=== PATIENT | female | born 1950 | race Caucasian/White ===

== ENCOUNTER → 2016-07-05 | Outpatient (CLI) | payer BC ==
[~2016-07-05] MED LIST: ASPEC81 PO; ATOR-24 PO; CHOL1000 PO; CHOL100010 PO; ESTR10TA PV; HYDR-5688 PO; LPT40 PO; LSN25 PO; LUTE15CA PO; METO25TA3 PO; METO50TA16 PO; PLV75 PO; ZEAX5POW PO; ZNTT/150 PO
--- NOTE | 2016-07-05 15:37 | MAMMOGRAPHY REPORT ---
BILATERAL DIGITAL SCREENING MAMMOGRAM WITH CAD: 07/05/2016 CLINICAL HISTORY: Routine screening. Patient has no complaints. TECHNIQUE: Bilateral CC and MLO views were obtained. Current study was also evaluated with a Comput er Aided Detection (CAD) system. COMPARISON: Comparison is made to exams dated: 06/12/2015 mammogram, 05/23/2014 mammogram, 05/07/2013 mammogram, 06/24/2015 mammogram, 05/01/2012 mammogram, and 04/19/2011 mammogram - [facility]. BREAST COMPOSITION: The tissue of both breasts is heterogeneously dense, which may obscure small ma sses. FINDINGS: There is decreasing nodularity of the right breast. There are mild vascular calcification s bilaterally. A stable round and punctate microcalcifications within the right breast. No new june picious mass, architectural distortion or cluster of microcalcifications is seen. IMPRESSION: ACR BI-RADS CATEGORY 1: NEGATIVE There is no mammographic evidence of malignancy. A 1 year screening mammogram is recommended. The p atient will receive written notification of the results. Approximately 10% of breast cancers are not detected with mammography. A negative mammographic repor t should not delay biopsy if a clinically suggestive mass is present. Porsha Godinez M.D. ay/:07/05/2016 14:35:59 Family Health Nurse Practitioner: Bere MENG(Meenakshi)(M), [facility] letter sent: Normal 1/2 BI-RADS Code: ACR BI-RADS Category 1: Negative
== END | disposition home or self-care (01) ==
LOC: C.MAMM 13:56
PROVIDERS: ATTEND Obstetrics & Gynecology
DX: Z12.31 Encounter for screening mammogram for malignant neoplasm of breast (principal)

== ENCOUNTER → 2016-08-30 | Day surgery (SDC) | payer BC ==
[2016-08-24 08:40] VITALS: Ht 149.9 cm; Wt 50.9 kg
[~2016-08-30] VITALS: Ht 149.9 cm; Wt 50.9 kg
[~2016-08-30] MED LIST changes: +ATROPINE SULFATE 0.1 MG/ML 5ML SYR IV PRN; +BUPIVACAINE 0.5 % 5 MG/1 ML PF 10ML VIAL ONE; +CEFAZOLIN 1000MG/55 ML D5W IV SCH; -CHOL100010 PO; +DEXAMETHASONE SOD INJ 4 MG/ML VIAL ONE; +FENTANYL CITRATE INJ 50 MCG/1 ML 2 ML VIAL IV PRN; +FENTANYL CITRATE INJ 50 MCG/1 ML 2 ML VIAL ONE; +LACTATED RINGER'S 1000ML 1,000 ML IV SCH; +LIDOCAINE HCL 1% 20 ML VIAL ONE; +LIDOCAINE HCL 2% 2 ML VIAL (20MG/ML) ONE; -LPT40 PO; -LSN25 PO; -METO50TA16 PO; +MIDAZOLAM HCL 1 MG/ML 2ML VIAL ONE; +ONDANSETRON INJ 2 MG/ML 2 ML VIAL IV PRN; +ONDANSETRON INJ 2 MG/ML 2 ML VIAL ONE; +OXYCODONE/ACETAMINOPHEN 5-325 TAB PO PRN; +PROPOFOL IV EMULSION 10 MG/ML 20 ML VIAL IV ONE; +SODIUM CHLORIDE 0.9% 1000ML 1,000 ML IV SCH; -ZEAX5POW PO; -ZNTT/150 PO
--- NOTE | 2016-08-30 06:43 | History & Physical Bridge - SC ---
H&P Re-Evaluation Bridge Note: I have examined the patient, reviewed the History & Physical and in the interval since the performance of the History & Physical I have noted the following changes of clinical significance: No changes noted
--- NOTE | 2016-08-30 07:40 | [facility] Post Operative Brief Note ---
Immediate Operative Summary Operative Date Aug 30, 2016. Pre-Operative Diagnosis Left Carpal Tunnel Syndrome Post-Operative Diagnosis Same Procedure(s) Performed Left Carpal Tunnel Release Surgeon Dr. Reis Manager Mechanical Surgeon(s) Derrick Delacruz PA-C Estimated Blood Loss None Findings ABOVE Specimens None Anesthesia LOCAL IV SEDATION Complication(s) None Disposition
--- NOTE | 2016-08-30 07:45 | Discharge Instructions-SurgCtr ---
Discharge Instructions Date of Service Aug 30, 2016. Visit Reason for Visit: Left Carpal Tunnel Syndrome, Pain Discharge Discharge Diagnosis / Problem: SAME ABOVE Discharge Goals Goal(s): Decrease discomfort, Improve function Activity Recommendations Activity Limitations: as noted below Lifting Limitations: until after follow-up appointment Exercise/Sports Limitations: until after follow-up appointment Shower/Bathe: keep incision dry Anesthesia . Post Anesthesia Instructions: If you have had General Anesthesia or IV Sedation: * Do not drive today. * Resume driving when surgeon permits. * Do not make important decisions or sign legal documents today. * Call surgeon for: 1. Temperature elevations greater than 101 degrees F. 2. Uncontrollable pain. 3. Excessive bleeding. 4. Persistent nausea and vomiting. 5. Medication intolerance (nausea, vomiting or rash). * For nausea and vomiting use only clear liquids such as: tea, soda, bouillon until nausea subsides, then gradually increase diet as tolerated. * If you have any concerns or questions, call your surgeon's office. If physician is unavailable and it is an emergency, call 911 or go to the nearest emergency room. . Instructions / Follow-Up Instructions / Follow-Up MEDICATIONS: * Resume previous medications unless instructed otherwise by your surgeon. * Always take pain medication on a full stomach or with food to avoid upset stomach. * Do not drink alcohol or drive while taking narcotics. * Ibuprofen or Tylenol may be taken if narcotic not needed. SPECIAL CARE INSTRUCTIONS: __ None _X_ Keep extremity elevated and iced x 48 hours; apply ice 20-30 minutes 8-10 times/day. May remove at night. __ Sling __24 hrs/day __ Remove at night __ Shoulder Immobilizer __ 24 hrs/day __ Remove at night _X_ Dressing _X_ Maintain until seen in office, may shower with plastic over site __ Remove dressings in 24-48 hours and then may shower __ Cover incisions with band-aids after showering __ Do not remove steri-strips Call physician if chills or temperature rises above 102 degrees or pain unrelieved by prescribed pain medications at . . Diet Recommendations Home Diet: resume previous diet Procedures Procedures Performed: Left Carpal Tunnel Release Pending Studies Studies pending at discharge: no Medical Emergencies . Who to Call and When: Medical Emergencies: If at any time you feel your situation is an emergency, please call 911 immediately. . Non-Emergent Contact Non-Emergency issues call your: Primary Care Provider . . "Provider Documentation" section prepared by Son Delacruz.
[2016-08-30 07:46] VITALS: TEMP 36.3
[2016-08-30 08:15] VITALS: BP 111/74; PULSE 66; O2SAT 98
--- NOTE | 2016-08-30 08:29 | OPERATIVE REPORT ---
DATE OF OPERATION: 08/30/2016 PREOPERATIVE DIAGNOSIS: Left carpal tunnel syndrome. POSTOPERATIVE DIAGNOSIS: Same. PROCEDURE: Decompression medial nerve release transverse carpal ligament, left wrist. SURGEON: Dr. Reis. PST SUPERVISOR: Son Delacruz PA-C. ANESTHESIOLOGIST: Dr. Landa. ANESTHESIA: Local with IV sedation. DRAINS: None. COMPLICATIONS: None. CONDITION: The patient tolerated the procedure well and returned to the recovery room in apparent satisfactory condition. INDICATIONS FOR SURGERY: Sheridan is a 66-year-old female who has had increasing numbness, pain and discomfort in the left hand consistent with carpal tunnel. Went over treatment options and she elected to go ahead and proceed with surgery. Procedure, expected outcomes, side effects and risks were all explained in detail in the office. PROCEDURE: The patient was taken to the OR at which time she was placed supine on the operating table. The left hand was prepped and draped in the usual sterile fashion for this surgery. The anticipated incision site was infiltrated with 1% Xylocaine. A forearm tourniquet was placed on the arm and tourniquet was placed up to 250 mmHg. Incision was made vertically over the transverse carpal tunnel ligament. Dissection was done down until the palmar fascia was identified and divided with a 15-blade. The transverse carpal ligament was identified and also divided with the 15-blade and upbiting scissors. A small portion of the forearm fascia was divided also. Electrocautery was used to control any areas of bleeding. The nerve was freed up from any scar tissue and adequately decompressed. The wound then was copiously irrigated. It was closed then with interrupted 4-0 nylon sutures. Marcaine without Epinephrine was placed in the skin edges. It was closed in a layered fashion. We placed a sterile dressing of Xeroform, 4 x 4, volar splint, and an Garth bandage. DISPOSITION: The patient was returned back to the recovery room in apparent satisfactory condition. I attest to the content of the Intraoperative Record and any orders documented therein. Any exceptio ns are noted below.
--- NOTE | 2016-08-30 08:36 | Anesthesia Progress Nt - [facility] ---
Anesthesia Post Op Note Date & Time Aug 30, 2016 at 08:36 Vital Signs Pain Intensity: 0 Vital Signs Past 12 Hours Date Time Temp Pulse Resp B/P Pulse Ox O2 Delivery O2 Flow Rate FiO2 08/30/16 08:15 66 16 111/74 98 Room Air 08/30/16 07:46 36.3 70 16 92/58 96 Room Air 08/30/16 06:38 36.3 78 20 137/73 96 Room Air Notes Mental Status: alert / awake / arousable, participated in evaluation Pt Amnestic to Procedure: Yes Nausea / Vomiting: adequately controlled Pain: adequately controlled Airway Patency, RR, SpO2: stable & adequate BP & HR: stable & adequate Hydration State: stable & adequate Anesthetic Complications: no major complications apparent
== END | disposition home or self-care (01) ==
LOC: X.SURG 06:32
PROVIDERS: ATTEND Orthopaedic Surgery
DX: G56.02 Carpal tunnel syndrome, left upper limb (principal); I10 Essential (primary) hypertension; Z79.82 Long term (current) use of aspirin; Z79.899 Other long term (current) drug therapy

== ENCOUNTER → 2017-06-08 | Outpatient (CLI) | payer BC ==
[~2017-06-08] MED LIST changes: -ASPEC81 PO; +ASPI-320 PO; -ATROPINE SULFATE 0.1 MG/ML 5ML SYR IV PRN; -BUPIVACAINE 0.5 % 5 MG/1 ML PF 10ML VIAL ONE; -CEFAZOLIN 1000MG/55 ML D5W IV SCH; -DEXAMETHASONE SOD INJ 4 MG/ML VIAL ONE; -FENTANYL CITRATE INJ 50 MCG/1 ML 2 ML VIAL IV PRN; -FENTANYL CITRATE INJ 50 MCG/1 ML 2 ML VIAL ONE; -HYDR-5688 PO; -LACTATED RINGER'S 1000ML 1,000 ML IV SCH; -LIDOCAINE HCL 1% 20 ML VIAL ONE; -LIDOCAINE HCL 2% 2 ML VIAL (20MG/ML) ONE; -MIDAZOLAM HCL 1 MG/ML 2ML VIAL ONE; -ONDANSETRON INJ 2 MG/ML 2 ML VIAL IV PRN; -ONDANSETRON INJ 2 MG/ML 2 ML VIAL ONE; -OXYCODONE/ACETAMINOPHEN 5-325 TAB PO PRN; -PROPOFOL IV EMULSION 10 MG/ML 20 ML VIAL IV ONE; -SODIUM CHLORIDE 0.9% 1000ML 1,000 ML IV SCH
--- NOTE | 2017-06-15 06:48 | CODING QUERY MEDICAL NECESSITY ---
CQSUPPORTING DIAGNOSIS NEEDED A supporting diagnosis is required for the test/procedure performed on this patient in order for us to be reimbursed by the patient's insurance. Please provide a supporting diagnosis for the following test/procedure listed below next to the test name along with your signature. *If there is no additional diagnosis for this patient that would support the following test/procedure please document that below next to the test/procedure. Test(s)/Procedure(s) that require a supporting diagnosis: DOS 06/08/17 BONE MINERAL DENSITY STUDY Provider Signature: Date: Thank you Sue Dai Health Information Management Once completed, please kindly fax back to [phone] For questions please call [phone]
== END | disposition home or self-care (01) ==
LOC: C.MAMM 13:34
PROVIDERS: ATTEND Physician Assistant
DX: Z13.820 Encounter for screening for osteoporosis (principal)

== ENCOUNTER → 2017-08-24 | Outpatient (CLI) | payer BC ==
[~2017-08-24] MED LIST changes: +ASPEC81 PO; -ASPI-320 PO
--- NOTE | 2017-08-29 08:15 | MAMMOGRAPHY REPORT ---
BILATERAL DIGITAL SCREENING MAMMOGRAM TOMOSYNTHESIS WITH CAD: 08/24/2017 CLINICAL HISTORY: Routine screening. Patient has no complaints. TECHNIQUE: Breast tomosynthesis in addition to standard 2D mammography was performed. Current study was also evaluated with a Computer Aided Detection (CAD) system. COMPARISON: Comparison is made to exams dated: 07/05/2016 mammogram, 06/24/2015 mammogram, 06/12/2015 ma mmogram, 05/23/2014 mammogram, 05/07/2013 mammogram, and 05/01/2012 mammogram - [facility]. BREAST COMPOSITION: The tissue of both breasts is heterogeneously dense, which may obscure small mas ses. FINDINGS: No suspicious masses, calcifications, or areas of architectural distortion are noted in ei ther breast. There has been no significant interval change compared to prior exams. IMPRESSION: ACR BI-RADS CATEGORY 1: NEGATIVE There is no mammographic evidence of malignancy. A 1 year screening mammogram is recommended. The pa tient will receive written notification of the results. Approximately 10% of breast cancers are not detected with mammography. A negative mammographic report should not delay biopsy if a clinically suggestive mass is present. Rosa Sands M.D. ah/:08/24/2017 13:51:42 Industrial Hygenist: Margarita MENG(R)(M), [facility] letter sent: Normal 1/2 BI-RADS Code: ACR BI-RADS Category 1: Negative
== END | disposition home or self-care (01) ==
LOC: C.MAMM 13:09
PROVIDERS: ATTEND Obstetrics & Gynecology
DX: Z12.31 Encounter for screening mammogram for malignant neoplasm of breast (principal)

== ENCOUNTER 2022-06-10 16:56 | Inpatient (IN) ==
[2022-06-10] MEDS ORDERED: cefTRIAXone SODIUM 2,000 MG/70 ML BAG IV STA (17:30)
[2022-06-10] MEDS ORDERED: SODIUM CHLORIDE 0.9% 1000ML 2,000 ML IV ONE (17:33)
--- NOTE | 2022-06-10 17:36 | Emergency Department Note ---
Impression & Plan Sepsis, Respiratory failure, Hypoxia, Pneumonia ED Provider Note NAME: RICHARD MÉNDEZ AGE: 72 SEX: F : 1950 ARRIVES VIA: Walk-In INFORMANT: Patient, ED PROVIDER(S): Jaxson Barahona DO CHIEF COMPLAINT: Fever and shortness of breath HPI: Patient is a 72-year-old female who presents the ER for cough, congestion, runny nose, which started on the . She was around her grandchildren who are also sick with upper respiratory symptoms. The positive for human me tapneumovirus. She notes the fever started within the past 3 to 4 days. She has had a pulse ox readings of 85% at home. Denies any belly pain, nausea, vomiting, or diarrhea. No dysuria, urgency, or frequency. No other exacerbating or remitting factors. She is more short of breath with up moving around. PAST MEDICAL HISTORY:See Below PAST SURGICAL HISTORY:See Below FAMILY HISTORY:See Below SOCIAL HISTORY:See Below HOME MEDICATIONS:See Below ALLERGIES:See Below VITALS:See Below PHYSICAL EXAMINATION: GENERAL: Sitting up in bed, alert, intermittent cough and a slightly hoarse voice EYE EXAM: normal conjunctiva. PERRL and EOM's grossly intact. OROPHARYNX: mucous membranes are dry NECK: supple, no nuchal rigidity, no adenopathy, non-tender LUNGS: Clear to auscultation. Normal chest wall mechanics HEART: Tachycardic, S1 normal and S2 normal ABDOMEN: abdomen soft, non-tender, normo-active bowel sounds, no masses, no rebound or guarding. UPPER EXTREMITIES: upper extremities are grossly normal. LOWER EXTREMITIES: No pitting edema. NEURO EXAM: Normal sensorium, cranial nerves II-XII grossly intact, normal speec h, no gross weakness of arms, no gross weakness of legs. MEDICAL DECISION MAKING: Patient 72-year-old female who presents ER for above-stated complaint found to be hypoxic, febrile and tachycardic. External records were reviewed. Discussed with at length at bedside. Vitals show the patient is febrile, tachycardic and hypoxic. Patient was placed on nasal cannula. IVs were established blood work was obtained. Labs show no significant leukocytosis or anemia. BMP with a mild hypokalemia 3.3. Mild transaminitis. Troponin was negative. Pro-Baltazar was normal. UA was clean. Influenza COVID and RSV was negative. Do favor that this is human metapneumovirus combination with a mc mitten bacterial infection as chest x-ray shows bilateral infiltrates. Patient was given Rocephin and azithromycin. She was given 2 L of IV fluids as well as Tylenol updated at bedside as well as the and discussed with Dr. Eric Rodríguez for further evaluation and admission Triage Nursing notes reviewed. Limited review of prior medical records performed Vital Signs: reviewed and remarkable for hypoxic, febrile and tachycardic Differential diagnosis: Differential diagnosis includes etiologies such as sepsis, UTI, pneumonia, metabolic, electrolyte abnormalities, cardiac sources, intracerebral event, toxicologic, neurological, as well as others were entertained. ER treatment provided: See below Diagnostics interpreted by me include EKG and cardiac monitoring as listed below: -Cardiac Monitoring: An order was placed for continuous cardiac monitoring. The monitor shows a rate of 110 with sinus rhythm. -ECG: Sinus tachycardia rate of 110 Normal axis No PVCs QTC 414 -Laboratory studies:Interpreted by me as stated above in MDM and shown below. Imaging studies: Xrays: As interpreted by me: Portable AP upright 1 view of the chest per my read shows bilateral focal infiltrates CTs show: none Consultation(s): Discussed with Dr. Eric Rodríguez in regards to presentation, treatment, history and further work-up. Procedures:none Critical Care: I have personally spent 35 minutes of critical care time in the direct management of this patient. This includes bedside care, interpretation of diagnostic studies, and testing, discussion with consultants, patient, and family members, and other required patient management activities. This 35 minutes is in excess of all separately billable procedures. Past Med/Surg History Medical History (Updated 06/10/22 @ 22:07 by Jaxson Barahona DO) Abnormal mammography Acute inferior myocardial infarction Antiplatelet or antithrombotic long-term use CAD (coronary artery disease) Dyslipidemia History of inferior wall myocardial infarction Lichen sclerosus et atrophicus Postmenopausal atrophic vaginitis Presence of drug-eluting stent in right coronary artery Vaginitis Surgical History S/P breast biopsy Family History Other Coronary heart disease Hypertension Social History Smoking Status: Never smoker Hx Alcohol Use: No Preferred Language: Chadian marital status: Current Living Situation: Spouse Feels Safe at Home: Yes Allergies Allergies Allergy/AdvReac Type Severity Reaction Status Date / Time Sulfa (Sulfonamide Allergy Intermediate blisters Verified 06/10/22 18:33 Antibiotics) Home Meds Home Medications Medication Instructions Recorded Confirmed aspirin 81 mg tablet,delayed 81 mg PO DAILY 03/27/19 06/10/22 release cholecalciferol (vitamin D3) 25 1,000 units PO DAILY 03/27/19 06/10/22 mcg (1,000 unit) capsule lutein 20 mg tablet 20 mg PO DAILY 03/27/19 06/10/22 Previous Rx's Medication Instructions Recorded atorvastatin 40 mg tablet 40 mg PO Q OTHER DAY #45 tabs 01/31/22 metoprolol succinate 25 mg 12.5 mg PO DAILY #45 tabs 01/31/22 tablet,extended release 24 hr estradiol 10 mcg vaginal tablet 10 mcg vaginal 2XWK #24 tabs 04/22/22 (Vagifem) Results & Data (ED) Vital Signs Vital Signs - 24 hr 06/10/22 17:10 06/10/22 17:41 06/10/22 17:41 Temperature 38.8 C H Temperature Source Temporal Artery Scan Pulse Rate 118 H Pulse Rate [Apical] Pulse Rate [Right Finger] 108 H Pulse Rhythm [Right Finger] Regular Pulse Strength [Right Finger] Normal Respiratory Rate 22 18 Respiratory Effort / Characteristics Non-Labored Respiratory Depth Normal Respiratory Pattern Regular Blood Pressure 156/61 H Blood Pressure [Right Arm] 145/69 H Blood Pressure Mean 92 Blood Pressure Mean [Right Arm] 94 Blood Pressure Position [Right Arm] Lying Pulse Oximetry 88 L 96 Oxygen Delivery Method Room Air Room Air Room Air Oxygen Flow Rate Sepsis Recent Fever Within 48 Hours Yes Sepsis New/Unexplained Change in Mental Status No Sepsis Action Taken by Nursing No Action Required 06/10/22 18:00 06/10/22 19:14 06/10/22 21:42 Temperature Temperature Source Pulse Rate Pulse Rate [Apical] 90 Pulse Rate [Right Finger] 111 H 90 Pulse Rhythm [Right Finger] Regular Pulse Strength [Right Finger] Normal Respiratory Rate 18 19 23 Respiratory Effort / Characteristics Non-Labored Non-Labored Spontaneous Spontaneous Respiratory Depth Normal Normal Normal Respiratory Pattern Regular Regular Regular Blood Pressure Blood Pressure [Right Arm] 117/72 114/66 123/63 Blood Pressure Mean Blood Pressure Mean [Right Arm] 87 82 83 Blood Pressure Position [Right Arm] Lying Pulse Oximetry 95 95 96 Oxygen Delivery Method Nasal Cannula Nasal Cannula Nasal Cannula Oxygen Flow Rate 3 3 Sepsis Recent Fever Within 48 Hours Sepsis New/Unexplained Change in Mental Status Sepsis Action Taken by Nursing Laboratory Data 06/10/22 17:25 06/10/22 17:25 Lab Results 06/10/22 06/10/22 06/10/22 Range/Units 17:25 17:25 17:25 WBC 9.61 (4.8-10.8) K/ul RBC 4.07 (3.93-5.22) M/uL Hgb 11.7 L (12.0-16.0) g/dl Hct 34.4 (34.1-44.9) % MCV 84.5 (80.0-100.0) fL MCH 28.7 (25.0-34.0) pg MCHC 34.0 (32.0-36.0) g/dL RDW Std Deviation 44.4 (36.4-46.3) fL RDW Coeff of Salbador 14.3 (11.5-14.5) % Plt Count 254 (130-400) K/uL MPV 10.0 (9.4-12.3) fL Immature Gran % (Auto) 0.8 % Neut % (Auto) 83.1 % Lymph % (Auto) 7.1 % Boyle % (Auto) 8.3 % Eos % (Auto) 0.1 % Baso % (Auto) 0.6 % Neut # (Auto) 7.98 H (1.4-6.5) K/uL Lymph # (Auto) 0.68 L (1.2-3.4) K/uL Boyle # (Auto) 0.80 (0.24-0.82) K/uL Eos # (Auto) 0.01 (0-0.50) K/uL Baso # (Auto) 0.06 (0-0.2) K/uL Immature Gran # (Auto) 0.08 H (0.00-0.02) K/uL Sodium 137 (136-145) mmol/L Potassium 3.3 L (3.5-5.1) mmol/L Chloride 101 (98-107) mmol/L Carbon Dioxide 26 (21-32) mmol/L Anion Gap 10 (3-11) BUN 12 (6-23) mg/dl Creatinine 0.79 (0.6-1.2) mg/dl Est Cr Clr Drug Dosing 47.8 ml/min Est GFR ( Amer) 86.1 ml/min Est GFR (Non-Af Amer) 74.3 ml/min BUN/Creatinine Ratio 15.2 (10-20) Glucose 147 H (70-99(Fasting)) mg/dl Lactate (0.4-2.0) mmol/L Calcium 9.0 (8.5-10.1) mg/dl Magnesium 1.8 (1.7-2.4) mg/dl Total Bilirubin 1.0 (0.2-1.0) mg/dl Direct Bilirubin 0.4 H (0-0.2) mg/dl AST 80 H (13-39) U/L ALT 69 H (7-52) U/L Alkaline Phosphatase 110 H (34-104) U/L Troponin I High Sens 11.4 (0-14) pg/ml Total Protein 7.1 (6.0-8.3) gm/dl Albumin 3.9 (3.4-5.0) gm/dl Procalcitonin 0.25 (0-0.5) ng/ml Urine Color Urine Appearance (Clear) Urine pH (4.5-7.5) Ur Specific [place] (1.000-1.030) Urine Protein (Negative) Urine Glucose (UA) (Negative) Urine Ketones (Negative) Urine Blood (Negative) Urine Nitrite (Negative) Urine Bilirubin (Negative) Urine Urobilinogen (Negative) Ur Leukocyte Esterase (Negative) Urine WBC (Auto) (0-5) /hpf Urine RBC (Auto) (0-4) /hpf U Hyaline Cast (Auto) (0-5) /lpf U Epithel Cells (Auto) (0-5) /lpf Urine Bacteria (Auto) (Negative) Ur Renal Epithelial Cell Amorphous Sediment (None Prsent) SARS-CoV-2 (PCR) (Negative) Influenza Type A (PCR) (Neg) Influenza Type B (PCR) (Neg) RSV (RT-PCR) (Neg) 06/10/22 06/10/22 06/10/22 Range/Units 17:45 18:01 19:20 WBC (4.8-10.8) K/ul RBC (3.93-5.22) M/uL Hgb (12.0-16.0) g/dl Hct (34.1-44.9) % MCV (80.0-100.0) fL MCH (25.0-34.0) pg MCHC (32.0-36.0) g/dL RDW Std Deviation (36.4-46.3) fL RDW Coeff of Salbador (11.5-14.5) % Plt Count (130-400) K/uL MPV (9.4-12.3) fL Immature Gran % (Auto) % Neut % (Auto) % Lymph % (Auto) % Boyle % (Auto) % Eos % (Auto) % Baso % (Auto) % Neut # (Auto) (1.4-6.5) K/uL Lymph # (Auto) (1.2-3.4) K/uL Boyle # (Auto) (0.24-0.82) K/uL Eos # (Auto) (0-0.50) K/uL Baso # (Auto) (0-0.2) K/uL Immature Gran # (Auto) (0.00-0.02) K/uL Sodium (136-145) mmol/L Potassium (3.5-5.1) mmol/L Chloride (98-107) mmol/L Carbon Dioxide (21-32) mmol/L Anion Gap (3-11) BUN (6-23) mg/dl Creatinine (0.6-1.2) mg/dl Est Cr Clr Drug Dosing ml/min Est GFR ( Amer) ml/min Est GFR (Non-Af Amer) ml/min BUN/Creatinine Ratio (10-20) Glucose (70-99(Fasting)) mg/dl Lactate 1.1 (0.4-2.0) mmol/L Calcium (8.5-10.1) mg/dl Magnesium (1.7-2.4) mg/dl Total Bilirubin (0.2-1.0) mg/dl Direct Bilirubin (0-0.2) mg/dl AST (13-39) U/L ALT (7-52) U/L Alkaline Phosphatase (34-104) U/L Troponin I High Sens (0-14) pg/ml Total Protein (6.0-8.3) gm/dl Albumin (3.4-5.0) gm/dl Procalcitonin (0-0.5) ng/ml Urine Color Dark Yellow Urine Appearance Cloudy A (Clear) Urine pH 5.5 (4.5-7.5) Ur Specific [place] 1.036 H (1.000-1.030) Urine Protein 3+ H (Negative) Urine Glucose (UA) Trace H (Negative) Urine Ketones Trace H (Negative) Urine Blood 3+ H (Negative) Urine Nitrite Negative (Negative) Urine Bilirubin 1+ H (Negative) Urine Urobilinogen Negative (Negative) Ur Leukocyte Esterase Negative (Negative) Urine WBC (Auto) 1-5 (0-5) /hpf Urine RBC (Auto) 0-4 (0-4) /hpf U Hyaline Cast (Auto) 1-5 (0-5) /lpf U Epithel Cells (Auto) 10-20 H (0-5) /lpf Urine Bacteria (Auto) Negative (Negative) Ur Renal Epithelial Cell Not Reportable Amorphous Sediment Present A (None Prsent) SARS-CoV-2 (PCR) NEGATIVE (Negative) Influenza Type A (PCR) Negative (Neg) Influenza Type B (PCR) Negative (Neg) RSV (RT-PCR) Negative (Neg) Administered Medications Discontinued Medications Acetaminophen (Acetaminophen 325 Mg Tab) 650 mg PO NOW STA Stop: 06/10/22 18:16 Last Admin: 06/10/22 18:25 Dose: 650 mg Documented By: AP Ceftriaxone Sodium (Rocephin) 2,000 mg in 70 mls @ 140 mls/hr IV NOW STA Stop: 06/10/22 17:59 Last Infusion: 06/10/22 18:27 Dose: 0 mls/hr Documented By: Admin: 06/10/22 17:53 Dose: 140 mls/hr Documented By: AP Sodium Chloride (Nss 1000ml) 2,000 mls @ 999 mls/hr IV .Q2H1M ONE Stop: 06/10/22 19:33 Last Infusion: 06/10/22 19:47 Dose: 0 mls/hr Documented By: experimental mechanic electrical: 06/10/22 17:53 Dose: 999 mls/hr Documented By: AP Azithromycin 500 mg/ Dextrose 255 mls @ 127.5 mls/hr IV NOW STA Stop: 06/10/22 20:12 Last Admin: 06/10/22 19:40 Dose: 127.5 mls/hr Documented By: ZOË Potassium Chloride (Potassium Chloride Crtab 20 Meq Tabcr) 20 meq PO NOW STA Stop: 06/10/22 20:38 Last Admin: 06/10/22 21:21 Dose: 20 meq Documented By: MED Imaging Data Radiologist's Impression: Chest X-Ray 06/10/22 17:30 SINGLE VIEW CHEST CLINICAL HISTORY: Sepsis. FINDINGS: An AP, portable, upright chest radiograph is compared to study dated 12/03/2015. The cardiomediastinal silhouette is unremarkable noting atherosclerotic calcification of the thoracic aorta. Chronic interstitial thickening similar to previous. Airspace consolidation is seen at both lung bases. No large pleural effusion or pneumothorax is identify. The skeletal structures are osteopenic. The bony thorax is grossly intact. IMPRESSION: Airspace consolidation at both lung bases is typical for pneumonia/aspiration pneumonitis. Clinical correlation will be required and radiographic follow-up to resolution is recommended. ACT 112: Negative or not required by law. Electronically signed by: Vel Gaxiola M.D. 06/10/2022 5:58 PM Discharge Plan Visit Data Chief Complaint: Fever Stated Complaint: COUGH, FEVER ED Provider: Jaxson Barahona Discharge Problem: Sepsis, Respiratory failure, Hypoxia, Pneumonia Forms Stand Alone Forms: On License Of [facility] Prescriptions Prescriptions: No Action estradiol [Vagifem] 10 mcg tablet 10 mcg vaginal 2XWK Qty: 24 3RF atorvastatin 40 mg tablet 40 mg PO Q OTHER DAY Qty: 45 3RF metoprolol succinate 25 mg tablet extended release 24 hr 12.5 mg PO DAILY Qty: 45 3RF aspirin 81 mg tablet,delayed release (DR/EC) 81 mg PO DAILY cholecalciferol (vitamin D3) 1,000 unit capsule 1,000 units PO DAILY lutein 20 mg tablet 20 mg PO DAILY Referrals Referrals: Galilea Montano PA-C [Primary Care Provider] -
--- NOTE | 2022-06-10 17:59 | XRay Report ---
SINGLE VIEW CHEST CLINICAL HISTORY: Sepsis. FINDINGS: An AP, portable, upright chest radiograph is compared to study dated 12/03/2015. The cardiom ediastinal silhouette is unremarkable noting atherosclerotic calcification of the thoracic aorta. Chr onic interstitial thickening similar to previous. Airspace consolidation is seen at both lung bases. No large pleural effusion or pneumothorax is identify. The skeletal structures are osteopenic. The [place] thorax is grossly intact. IMPRESSION: Airspace consolidation at both lung bases is typical for pneumonia/aspiration pneumonitis . Clinical correlation will be required and radiographic follow-up to resolution is recommended. ACT 112: Negative or not required by law. Electronically signed by: Vel Gaxiola M.D. 06/10/2022 5:58 PM
[2022-06-10 18:10] LABS: Hematocrit (blood only) 34.4 % (34.1-44.9); Hemoglobin 11.7 g/dl (12.0-16.0); Mean Corpuscular Hemoglobin 28.7 pg (25.0-34.0); Mean Corpuscular Volume 84.5 fL (80.0-100.0); Platelet Count 254 K/uL (130-400); RDW Coefficient of Variation 14.3 % (11.5-14.5); RDW Standard Deviation 44.4 fL (36.4-46.3); Red Blood Count 4.07 M/uL (3.93-5.22); White Blood Count 9.61 K/ul (4.8-10.8)
[2022-06-10] MEDS ORDERED: SODIUM CHLORIDE 0.9% 1000ML 1,000 ML IV ONE (18:13)
[2022-06-10] MEDS ORDERED: AZITHROMYCIN 500 MG in DEXTROSE 5% 250 ML IV STA (18:13)
[2022-06-10] MEDS ORDERED: ACETAMINOPHEN 325 MG TAB PO STA (18:15)
[2022-06-10 18:18] LABS: Albumin Level 3.9 gm/dl (3.4-5.0); BUN Creatinine Ratio 15.2 (10-20); Bilirubin Direct 0.4 mg/dl (0-0.2); Creatinine Clr Calc Pharmacy 47.8 ml/min; Est GFR (African American) 86.1 ml/min; Est GFR (Non-African American) 74.3 ml/min; Magnesium 1.8 mg/dl (1.7-2.4); Potassium 3.3 mmol/L (3.5-5.1); Total Protein 7.1 gm/dl (6.0-8.3)
[2022-06-10 18:19] LABS: Troponin I High Sensitivity 11.4 pg/ml (0-14)
[2022-06-10 18:38] LABS: Basophils # (auto) 0.06 K/uL (0-0.2); Basophils % (auto) 0.6 %; Eosinophils # (auto) 0.01 K/uL (0-0.50); Eosinophils % (auto) 0.1 %; Immature Granulocytes # (auto) 0.08 K/uL (0.00-0.02); Immature Granulocytes % (auto) 0.8 %; Lymphocytes # (auto) 0.68 K/uL (1.2-3.4); Lymphocytes % (auto) 7.1 %; Monocytes % (auto) 8.3 %; Neutrophils # (auto) 7.98 K/uL (1.4-6.5); Neutrophils % (auto) 83.1 %
[2022-06-10 18:49] LABS: Influenza A virus by PCR Negative (Neg); Influenza B virus by PCR Negative (Neg); RSV by PCR Negative (Neg); SARS CoV2 RNA(COVID-19) Ceph NEGATIVE (Negative)
--- NOTE | 2022-06-10 19:06 | History & Physical Report ---
Date of Service June 10, 2022 History of Present Illness Primary Care Provider: Galilea Montano PA-C Patient is a 72-year-old female with a history of CAD, PCI on aspirin/atorvastatin/metoprolol who presents with multifocal pneumonia, shortness of breath, fever which started approximately 7-10 days ago. Her grandchildren also have a URI which tested positive as outpatient for human metapneumovirus. Her fever started in the last 3 to 4 days Allergies Allergy/AdvReac Type Severity Reaction Status Date / Time Sulfa (Sulfonamide Allergy Intermediate blisters Verified 06/10/22 18:33 Antibiotics) Home Medications Medication Instructions Recorded Confirmed Type aspirin 81 mg tablet,delayed 81 mg PO DAILY 03/27/19 06/10/22 History release cholecalciferol (vitamin D3) 25 1,000 units PO DAILY 03/27/19 06/10/22 History mcg (1,000 unit) capsule lutein 20 mg tablet 20 mg PO DAILY 03/27/19 06/10/22 History atorvastatin 40 mg tablet 40 mg PO Q OTHER DAY #45 tabs 01/31/22 06/10/22 Rx metoprolol succinate 25 mg 12.5 mg PO DAILY #45 tabs 01/31/22 06/10/22 Rx tablet,extended release 24 hr estradiol 10 mcg vaginal tablet 10 mcg vaginal 2XWK #24 tabs 04/22/22 06/10/22 Rx (Vagifem) Past Med/Surg History Medical History Abnormal mammography Acute inferior myocardial infarction Antiplatelet or antithrombotic long-term use CAD (coronary artery disease) Dyslipidemia History of inferior wall myocardial infarction Lichen sclerosus et atrophicus Postmenopausal atrophic vaginitis Presence of drug-eluting stent in right coronary artery Vaginitis Surgical History S/P breast biopsy Family History Other Coronary heart disease Hypertension Social History Smoking Status: Never smoker Hx Alcohol Use: No Preferred Language: Tajik marital status: Current Living Situation: Spouse Feels Safe at Home: Yes Results & Data Results & Data ([facility]) Vital Signs (Past 12 Hours) Vital Signs Temp Pulse Pulse Resp BP BP Pulse Ox 06/10/22 18:00 111 H 18 117/72 95 06/10/22 17:41 06/10/22 17:41 108 H 18 145/69 H 96 06/10/22 17:10 38.8 C H 118 H 22 156/61 H 88 L O2 Del Method O2 Flow Rate 06/10/22 18:00 Nasal Cannula 3 06/10/22 17:41 Room Air 06/10/22 17:41 Room Air 06/10/22 17:10 Room Air PG Care Time/CCT Total # of Minutes Spent Total Time Spent with Patient: Total time spent is greater than 50% in coordination of care (as documented) at patient's floor/unit and/or counseling patient: Coding
[2022-06-10 19:42] LABS: Appearance Urine Cloudy (Clear); Bacteria Urine Automated Negative (Negative); Blood Urine 3+ (Negative); Color Urine Dark Yellow; Glucose Urine UA Trace (Negative); Ketones Urine Trace (Negative); Leukocyte Esterase Urine Negative (Negative); Nitrite Urine Negative (Negative); Protein Urine 3+ (Negative); RBC Urine Automated 0-4 /hpf (0-4); Specific Gravity Urine 1.036 (1.000-1.030); Urobilinogen Urine Negative (Negative); pH Urine 5.5 (4.5-7.5)
[2022-06-10 19:49] LABS: Bilirubin Urine 1+ (Negative)
[2022-06-10 19:57] LABS: Amorphous Sediment Urine Present (None Prsent)
[2022-06-10] MEDS ORDERED: POTASSIUM CHLORIDE CRTAB 20 MEQ TABCR PO STA (20:37)
--- NOTE | 2022-06-10 20:37 | History & Physical Report ---
Date of Service June 10, 2022 Assessment & Plan (1) Sepsis: (2) Acute respiratory failure with hypoxia: (3) Bilateral pneumonia: (4) Presence of drug-eluting stent in right coronary artery: (5) Antiplatelet or antithrombotic long-term use: (6) Dyslipidemia: (7) CAD (coronary artery disease): (8) Abnormal liver function tests: (9) Hypokalemia: Plan Acute respiratory failure with hypoxia/bilateral pneumonia/exposure to human metapneumovirus- Ceftriaxone 1 g IV daily Azithromycin 500 mg IV daily Guaifenesin extended release 1200 mg p.o. twice daily Duonebs every 4 hours while awake and every 2 hours when necessary. Methylprednisolone 20 mg IV every 8 hours Nasal cannula oxygen, titrate to keep pulse ox around 94% Suspect patient has human metapneumovirus as an underlying process, and secondary bacterial pneumonia CAD/hypertension/history RCA SANDRA- Continue aspirin 81 mg daily and metoprolol succinate 24-hour 12.5 mg daily Hyperlipidemia- Continue atorvastatin 40 mg every other day Abnormal LFTs- AST 80, ALT 69, direct bili 0.4, alkaline phosphatase 110- Repeat laboratories in a.m. Differential including viral etiology including her exposure to her grandchildren with human metapneumovirus History of Present Illness Chief Complaint: The patient presents to the emergency department with complaint of cough, chest congestion, runny nose, and shortness of breath that began shortly after her exposure to her grandchildren who had similar symptoms, and were also diagnosed with human metapneumovirus. She developed a temperature at home over the past 4 days, and recorded a pulse ox of 85% at home. Due to worsening symptoms, she presented to the ED for assessment today. Primary Care Provider: Galilea Montano PA-C The patient is a 72-year-old female with a past medical history including hyperlipidemia, vitamin D deficiency, hypertension, CAD and history of RCA SANDRA. She presents to the emergency department due to symptoms as noted above. In the emergency department today, she was noted to have a pulse ox of 88% on room air, and had a temperature of 38.8. Significant abnormal laboratories: Direct bilirubin 0.4, AST 80, ALT 69, alk phos 110, potassium 3.3, glucose 147, hemoglobin 11.7 and hematocrit 34.4 From the emergency department, the patient was given the following: Ceftriaxone 1 g IV, azithromycin 500 mg IV, normal saline 2 L fluid bolus and Tylenol 650 mg p.o. Allergies Allergy/AdvReac Type Severity Reaction Status Date / Time Sulfa (Sulfonamide Allergy Intermediate blisters Verified 06/10/22 18:33 Antibiotics) Home Medications Medication Instructions Recorded Confirmed Type aspirin 81 mg tablet,delayed 81 mg PO DAILY 03/27/19 06/10/22 History release cholecalciferol (vitamin D3) 25 1,000 units PO DAILY 03/27/19 06/10/22 History mcg (1,000 unit) capsule lutein 20 mg tablet 20 mg PO DAILY 03/27/19 06/10/22 History atorvastatin 40 mg tablet 40 mg PO Q OTHER DAY #45 tabs 01/31/22 06/10/22 Rx metoprolol succinate 25 mg 12.5 mg PO DAILY #45 tabs 01/31/22 06/10/22 Rx tablet,extended release 24 hr estradiol 10 mcg vaginal tablet 10 mcg vaginal 2XWK #24 tabs 04/22/22 06/10/22 Rx (Vagifem) Past Med/Surg History Medical History (Updated 06/11/22 @ 03:03 by Eric Rodríguez MD) Abnormal mammography Acute inferior myocardial infarction Antiplatelet or antithrombotic long-term use CAD (coronary artery disease) Dyslipidemia History of inferior wall myocardial infarction Lichen sclerosus et atrophicus Postmenopausal atrophic vaginitis Presence of drug-eluting stent in right coronary artery Vaginitis Surgical History S/P breast biopsy Family History Other Coronary heart disease Hypertension Social History Smoking Status: Never smoker Hx Alcohol Use: No Hx Substance Use: No Preferred Language: Turkish Range Manager Required: No Beliefs That Will Affect Care: None marital status: Current Living Situation: Spouse Feels Safe at Home: Yes Review of Systems Review of Systems: The patient denies chest pain, palpitations, lower extremity swelling, sore throat, fevers, chills, sweats, nausea, vomiting, diarrhea , constipation, abdominal pain, pelvic pain, blood in urine or stool, dysuria, urinary frequency or urgency, memory loss, loss of consciousness, rash, abnormal bruising or bleeding, imbalance, focal or generalized weakness, numbness or tingling in arms or legs, generalized arthralgias or myalgias, back or neck pain, or night sweats. The review of systems is otherwise negative other than for that already noted above, and at least 10 systems have been reviewed. Physical Exam Physical Exam: The patient is awake, alert and oriented 3, well developed and well nourished, normocephalic and atraumatic, lying in bed and in no acute distress. HEENT--PERRL, EOMI, mucous membranes and oropharynx dry. Neck--supple. No JVD. No bruits. Thyroid normal, trachea midline, no adenopathy. Heart--normal S1 and S2. No murmurs, rubs or gallops. Lungs--coarse breath sounds and wheezes bilaterally. No respiratory distress, no accessory muscle use. Abdomen--normal bowel sounds and soft. Nontender. Nondistended, no hernias or masses, no organomegaly. Extremities--no cyanosis or clubbing. No edema. Dermatologic--normal skin turgor, normal color, no abnormal lymph nodes, no rash. Neurologic--cranial nerves II through XII grossly intact. Rheumatologic--normal range of motion. Psychiatric--normal affect. Results & Data Results & Data ([facility]) Vital Signs (Past 12 Hours) Vital Signs Temp Pulse Pulse Resp BP BP Pulse Ox 06/10/22 19:14 90 19 114/66 95 06/10/22 18:00 111 H 18 117/72 95 06/10/22 17:41 06/10/22 17:41 108 H 18 145/69 H 96 06/10/22 17:10 38.8 C H 118 H 22 156/61 H 88 L O2 Del Method O2 Flow Rate 06/10/22 19:14 Nasal Cannula 3 06/10/22 18:00 Nasal Cannula 3 06/10/22 17:41 Room Air 06/10/22 17:41 Room Air 06/10/22 17:10 Room Air Laboratory Results Laboratory Results WBC 9.61 K/ul (4.8-10.8) 06/10/22 17:25 RBC 4.07 M/uL (3.93-5.22) 06/10/22 17:25 Hgb 11.7 g/dl (12.0-16.0) L 06/10/22 17:25 Hct 34.4 % (34.1-44.9) 06/10/22 17:25 MCV 84.5 fL (80.0-100.0) 06/10/22 17:25 MCH 28.7 pg (25.0-34.0) 06/10/22 17: MCHC 34.0 g/dL (32.0-36.0) 06/10/22 17:25 RDW Std Deviation 44.4 fL (36.4-46.3) 06/10/22: RDW Coeff of Salbador 14.3 % (11.5-14.5) 06/10/22: Plt Count 254 K/uL (130-400) 06/10/22 17: MPV 10.0 fL (9.4-12.3) 06/10/22 17:25 Immature Gran % (Auto) 0.8 % 06/10/22 17:25 Neut % (Auto) 83.1 % 06/10/22 17:25 Lymph % (Auto) 7.1 % 06/10/22 17:25 Rankin % (Auto) 8.3 % 06/10/22 17:25 Eos % (Auto) 0.1 % 06/10/22 17:25 Baso % (Auto) 0.6 % 06/10/22 17:25 Neut # (Auto) 7.98 K/uL (1.4-6.5) H 06/10/22 17:25 Lymph # (Auto) 0.68 K/uL (1.2-3.4) L 06/10/22 17:25 Rankin # (Auto) 0.80 K/uL (0.24-0.82) 06/10/22 17:25 Eos # (Auto) 0.01 K/uL (0-0.50) 06/10/22 17:25 Baso # (Auto) 0.06 K/uL (0-0.2) 06/10/22 17:25 Immature Gran # (Auto) 0.08 K/uL (0.00-0.02) H 06/10/22 17:25 Sodium 137 mmol/L (136-145) 06/10/22 17:25 Potassium 3.3 mmol/L (3.5-5.1) L 06/10/22 17:25 Chloride 101 mmol/L (98-107) 06/10/22 17:25 Carbon Dioxide 26 mmol/L (21-32) 06/10/22 17:25 Anion Gap 10 (3-11) 06/10/22 17:25 BUN 12 mg/dl (6-23) 06/10/22 17:25 Creatinine 0.79 mg/dl (0.6-1.2) 06/10/22 17:25 Est Cr Clr Drug Dosing 47.8 ml/min 06/10/22 17:25 Est GFR ( Amer) 86.1 ml/min 06/10/22 17:25 Est GFR (Non-Af Amer) 74.3 ml/min 06/10/22 17:25 BUN/Creatinine Ratio 15.2 (10-20) 06/10/22 17:25 Glucose 147 mg/dl (70-99(Fasting)) H 06/10/22 17:25 Lactate 1.1 mmol/L (0.4-2.0) 06/10/22 17:45 Calcium 9.0 mg/dl (8.5-10.1) 06/10/22 17:25 Magnesium 1.8 mg/dl (1.7-2.4) 06/10/22 17:25 Total Bilirubin 1.0 mg/dl (0.2-1.0) 06/10/22 17:25 Direct Bilirubin 0.4 mg/dl (0-0.2) H 06/10/22 17:25 AST 80 U/L (13-39) H 06/10/22 17:25 ALT 69 U/L (7-52) H 06/10/22 17:25 Alkaline Phosphatase 110 U/L (34-104) H 06/10/22 17:25 Troponin I High Sens 11.4 pg/ml (0-14) 06/10/22 17:25 Total Protein 7.1 gm/dl (6.0-8.3) 06/10/22 17:25 Albumin 3.9 gm/dl (3.4-5.0) 06/10/22 17:25 Procalcitonin 0.25 ng/ml (0-0.5) 06/10/22 17:25 Urine Color Dark Yellow 06/10/22 19:20 Urine Appearance Cloudy (Clear) A 06/10/22 19:20 Urine pH 5.5 (4.5-7.5) 06/10/22 19:20 Ur Specific United 1.036 (1.000-1.030) H 06/10/22 19:20 Urine Protein 3+ (Negative) H 06/10/22 19:20 Urine Glucose (UA) Trace (Negative) H 06/10/22 19:20 Urine Ketones Trace (Negative) H 06/10/22 19:20 Urine Blood 3+ (Negative) H 06/10/22 19:20 Urine Nitrite Negative (Negative) 06/10/22 19:20 Urine Bilirubin 1+ (Negative) H 06/10/22 19:20 Urine Urobilinogen Negative (Negative) 06/10/22 19:20 Ur Leukocyte Esterase Negative (Negative) 06/10/22 19:20 Urine WBC (Auto) 1-5 /hpf (0-5) 06/10/22 19:20 Urine RBC (Auto) 0-4 /hpf (0-4) 06/10/22 19:20 U Hyaline Cast (Auto) 1-5 /lpf (0-5) 06/10/22 19:20 U Epithel Cells (Auto) 10-20 /lpf (0-5) H 06/10/22 19:20 Urine Bacteria (Auto) Negative (Negative) 06/10/22 19:20 Ur Renal Epithelial Cell Not Reportable 06/10/22 19:20 Amorphous Sediment Present (None Prsent) A 06/10/22 19:20 SARS-CoV-2 (PCR) NEGATIVE (Negative) 06/10/22 18:01 Influenza Type A (PCR) Negative (Neg) 06/10/22 18:01 Influenza Type B (PCR) Negative (Neg) 06/10/22 18:01 RSV (RT-PCR) Negative (Neg) 06/10/22 18:01 Impressions Chest X-Ray 06/10/22 17:30 SINGLE VIEW CHEST CLINICAL HISTORY: Sepsis. FINDINGS: An AP, portable, upright chest radiograph is compared to study dated 12/03/2015. The cardiomediastinal silhouette is unremarkable noting atherosclerotic calcification of the thoracic aorta. Chronic interstitial thickening similar to previous. Airspace consolidation is seen at both lung bases. No large pleural effusion or pneumothorax is identify. The skeletal structures are osteopenic. The bony thorax is grossly intact. IMPRESSION: Airspace consolidation at both lung bases is typical for pneumonia/aspiration pneumonitis. Clinical correlation will be required and radiographic follow-up to resolution is recommended. ACT 112: Negative or not required by law. Electronically signed by: Vel Gaxiola M.D. 06/10/2022 5:58 PM Code Status & VTE Plan Code Status Full code VTE Prophylaxis Plan VTE Prophylaxis will be ordered: Yes
[2022-06-10] MEDS ORDERED: BENZONATATE 100 MG CAPSULE PO PRN (23:19)
[2022-06-10] MEDS ORDERED: ONDANSETRON INJ 2 MG/ML 2 ML VIAL IV PRN (23:19)
[2022-06-10] MEDS ORDERED: ACETAMINOPHEN 325 MG TAB PO PRN (23:19)
[2022-06-11] MEDS: guaiFENesin 600 MG TABCR PO SCH ×2 (00:44→08:27)
[2022-06-11] MEDS: methylPREDNISolone 20 MG in SYRINGE 0 ML IV SCH ×2 (00:44→09:23)
--- NOTE | 2022-06-11 03:10 | Billing Data ---
Date of Service June 11, 2022 Coding Level of Care Code 00854 INT INP/OBS CARE
[2022-06-11] MEDS: ALBUT/IPRATROP 3MG/0.5MG NEB 3 ML VIAL NEB SCH ×2 (07:18→11:05)
--- NOTE | 2022-06-11 08:20 | Hospitalist Progress Note ---
Date of Service June 11, 2022 Assessment & Plan Admission and Anticipated Discharge Date Admission Date: June 10, 2022 Results & Data Results & Data ([facility]) Vital Signs (Past 12 Hours) Vital Signs Temp Pulse Pulse Pulse Resp BP Pulse Ox 06/11/22 08:13 72 06/11/22 08:01 37.0 C 78 18 130/69 94 06/11/22 07:19 92 H 16 97 06/11/22 04:00 36.6 C 76 18 124/69 97 06/11/22 01:29 06/11/22 01:29 36.6 C 82 16 118/65 93 06/10/22 22:58 24 96 06/10/22 21:42 90 23 123/63 96 O2 Del Method O2 Flow Rate 06/11/22 08:13 06/11/22 08:01 Nasal Cannula 3 06/11/22 07:19 Nasal Cannula 2 06/11/22 04:00 Nasal Cannula 2 06/11/22 01:29 Nasal Cannula 3 06/11/22 01:29 Nasal Cannula 3 06/10/22 22:58 Nasal Cannula 3 06/10/22 21:42 Nasal Cannula
[2022-06-11] MEDS ORDERED: ATORVASTATIN 40 MG TAB PO SCH (09:00)
[2022-06-11] MEDS ORDERED: ASPIRIN 81 MG ECTAB PO SCH (09:00)
[2022-06-11] MEDS ORDERED: METOPROLOL SUCC 25MG EXT REL TAB PO SCH (09:00)
[2022-06-11] MEDS ORDERED: CHOLECALCIFEROL 1,000 UNITS 25 MCG TAB PO SCH (09:00)
[2022-06-11 09:09] LABS: Basophils # (auto) 0.05 K/uL (0-0.2); Basophils % (auto) 0.4 %; Eosinophils # (auto) 0.01 K/uL (0-0.50); Eosinophils % (auto) 0.1 %; Hematocrit (blood only) 33.8 % (34.1-44.9); Hemoglobin 11.6 g/dl (12.0-16.0); Immature Granulocytes # (auto) 0.24 K/uL (0.00-0.02); Lymphocytes # (auto) 0.59 K/uL (1.2-3.4); Lymphocytes % (auto) 4.9 %; Mean Corpuscular Hemoglobin 28.7 pg (25.0-34.0); Mean Corpuscular Hgb Conc 34.3 g/dL (32.0-36.0); Mean Corpuscular Volume 83.7 fL (80.0-100.0); Mean Platelet Volume 10.1 fL (9.4-12.3); Monocytes # (auto) 0.32 K/uL (0.24-0.82); Monocytes % (auto) 2.6 %; Neutrophils # (auto) 10.93 K/uL (1.4-6.5); Platelet Count 248 K/uL (130-400); RDW Coefficient of Variation 14.6 % (11.5-14.5); RDW Standard Deviation 44.5 fL (36.4-46.3); Red Blood Count 4.04 M/uL (3.93-5.22); White Blood Count 12.14 K/ul (4.8-10.8)
[2022-06-11 09:27] LABS: Albumin Level 3.6 gm/dl (3.4-5.0); BUN Creatinine Ratio 15.3 (10-20); Calcium 8.6 mg/dl (8.5-10.1); Creatinine Clr Calc Pharmacy 64.2 ml/min; Est GFR (African American) 105.4 ml/min; Est GFR (Non-African American) 90.9 ml/min; Magnesium 1.9 mg/dl (1.7-2.4); Phosphorus 3.2 mg/dl (2.5-4.9); Potassium 3.6 mmol/L (3.5-5.1)
--- NOTE | 2022-06-11 12:27 | Discharge Summary ---
Date of Service June 11, 2022 Admission HPI Per Admitting Provider The patient is a 72-year-old female with a past medical history including hyperlipidemia, vitamin D deficiency, hypertension, CAD and history of RCA SANDRA. She presents to the emergency department due to symptoms as noted above. In the emergency department today, she was noted to have a pulse ox of 88% on room air, and had a temperature of 38.8. Significant abnormal laboratories: Direct bilirubin 0.4, AST 80, ALT 69, alk phos 110, potassium 3.3, glucose 147, hemoglobin 11.7 and hematocrit 34.4 From the emergency department, the patient was given the following: Ceftriaxone 1 g IV, azithromycin 500 mg IV, normal saline 2 L fluid bolus and Tylenol 650 mg p.o. Admission Exam Per Admitting Provider The patient is awake, alert and oriented 3, well developed and well nourished, normocephalic and atraumatic, lying in bed and in no acute distress. HEENT--PERRL, EOMI, mucous membranes and oropharynx dry. Neck--supple. No JVD. No bruits. Thyroid normal, trachea midline, no adenopathy. Heart--normal S1 and S2. No murmurs, rubs or gallops. Lungs--coarse breath sounds and wheezes bilaterally. No respiratory distress, no accessory muscle use. Abdomen--normal bowel sounds and soft. Nontender. Nondistended, no hernias or masses, no organomegaly. Extremities--no cyanosis or clubbing. No edema. Dermatologic--normal skin turgor, normal color, no abnormal lymph nodes, no rash. Neurologic--cranial nerves II through XII grossly intact. Rheumatologic--normal range of motion. Psychiatric--normal affect. Principal Diagnosis Pneumonia Discharge Exam Constitutional WD/WN, vitals as above Eyes PERRL, conjunctivae normal, anicteric sclerae ENMT external ear and nose normal, oropharynx normal Neck trachea midline, no thyromegaly Respiratory normal respiratory effort Auscultation: + crackles (b/l lower lung pittman) Cardiovascular RRR, no murmur, no edema Gastrointestinal (Abdomen) Inspection/Auscultation: abdomen normal to inspection; abdomen not distended Percussion/Palpation: abdomen soft; abdomen nontender Skin no rashes, warm and dry Discharge Data Allergies Allergy/AdvReac Type Severity Reaction Status Date / Time Sulfa (Sulfonamide Allergy Intermediate blisters Verified 06/10/22 18:33 Antibiotics) Consultations 06/10/22 18:15 ED Decision to Admit Stat Hospital Course (1) Bilateral pneumonia: 72-year-old female with a past medical history including hyperlipidemia, vitamin D deficiency, hypertension, CAD and history of RCA SANDRA presented to the hospital with SOB found to have PNA. PNA -exposure human metapneumovirus at home, concern bacterial superinfection -pulse on on admit 88%, placed on supplemental oxygen -lactate, WBC, procal wnl -CXR: Airspace consolidation at both lung bases is typical for pneumonia/aspiration pneumonitis. Clinical correlation will be required and radiographic follow-up to resolution is recommended. -received azithromycin 500mg, ceftriaxone 2g on admit -started on duonebs, mucinex -started on methylprednisolone -Patient's condition improved walking on RA pulse ox 91%, will be discharged on azithromycin 250mg daily and cefpodoximine 200mg BID for total 5 day abx course -patient to f/u with PCP, possible repeat CXR in 1 month Hypokalemia -repleted Abnormal LFTs -may be related to ongoing infection -recheck with PCP (2) Respiratory failure: Total Time Total Time Spent Total Time Spent (In Minutes): see attending attestation Discharge Plan Discharge Items Patient Disposition: Home - Self-Care Reason For Visit: BILATERAL PNEUMONIA Discharge Diagnosis: Pneumonia Activity: Resume your previous activity Non-emergency contact: Primary Care Provider Call non-emergency contact if: you have any medication questions, your symptoms worsen, your pain is concerning for you and you have a fever Follow-up/Referrals: Galilea Montano PA-C [Primary Care Provider] - Diet: Regular Addtl Attending Provider Instructions: You were admitted to the hospital for pneumonia. You were treated with antibiotics, and your symptoms improved. Please continue to take antibiotics for the next 4 days. A discharge summary will be sent to your primary care physician to ensure continuity of care. Please bring this discharge summary with you to your next office appointment so that your provider can review it at that time. Follow-up appointments: Make a follow-up appointment with your PCP within the next week. It is very important that you follow up with them shortly after discharge from the hospital. Keep all your follow-up appointments as already scheduled. If you cannot make an appointment, notify your provider. Medications: Your medication list has been reviewed and reconciled upon discharge to ensure accuracy and continuity of care. An updated list of all your medications is included with your hospital discharge paperwork. Please review this list closely, and make note of any changes. * We sent a new medication called Cefpodoxime to your pharmacy. Take Cefpodoxine 200mg one tablet twice a day for 3 days. * We sent a new medication called Azithromycin to your pharmacy. Take Azithromycin 250mg one tablet daily for 3 days. Take your medications as instructed; do not skip a dose of your medicines. Make sure all of your doctors know every medicine you are taking (including [id number] medicines, vitamins, and supplements). Call your primary care provider before taking any new medicines (including [id number] medicines, vitamins, and supplements), because some of these may interact with your current medications, or may make your symptoms worse. Tell your primary care provider if you cannot afford your medications. CONTACT YOUR PRIMARY CARE PROVIDER if you experience any of the following: Increased difficulty breathing or wheezing Fever despite antibiotic usage Difficulty following your treatment plan, or difficulty taking medications CALL 911 OR GO TO THE EMERGENCY DEPARTMENT if you experience any of the following: Sudden, severe abdominal pain or nausea/vomiting Severe chest pain, or chest pain that radiates (moves) to your jaw or arm Sudden, severe shortness of breath or difficulty breathing Thank you for allowing us to participate in your care. Pending Studies at Discharge: No Stand-Alone Forms: My [facility] [place], Smoking Cessation Medications and DC Order Prescriptions: New azithromycin 250 mg tablet 250 mg PO DAILY 3 Days Qty: 3 0RF Rx Instructions: start on day 2 of therapy cefpodoxime 200 mg tablet 200 mg PO BID 3 Days Qty: 6 0RF Rx Instructions: must administer with a meal/food Continued estradiol [Vagifem] 10 mcg tablet 10 mcg vaginal 2XWK Qty: 24 3RF atorvastatin 40 mg tablet 40 mg PO Q OTHER DAY Qty: 45 3RF metoprolol succinate 25 mg tablet extended release 24 hr 12.5 mg PO DAILY Qty: 45 3RF aspirin 81 mg tablet,delayed release (DR/EC) 81 mg PO DAILY cholecalciferol (vitamin D3) 1,000 unit capsule 1,000 units PO DAILY lutein 20 mg tablet 20 mg PO DAILY Discharge Orders: Discharge Order (Routine); Ordered 06/11/22 Ordered By: Yashira Klein Admission Data Admit Date/Time: 06/10/22 20:35 Attending Provider: Jaxson Robledo Admit Provider: Eric Rodríguez Primary Care Provider: Galilea Montano Other Providers: Eric Rodríguez Other Interventions: Discharge Summary Assessment (RN) Last Done: 06/11/22 13:05 Supervising Physician Co-Signing Physician Notes I personally examined the patient and verified all newman points of history and exam, discussed case, and agree with decision making with Dr Klein. Feeling better and would very much like to go home. Family present as well. Breathing is better. We walked around the hallway, her pulse ox was about 92% prior to her walk, after her walk it was 91 and then actually after she sat and recovered (and even during this time was quite talkative) went up to as high as 97%all on room air. Vitals noted, in general she is awake and alert pleasant no distress. HEENT normocephalic atraumatic mucous membranes moist. Lungs overall clear good air entry no wheezing. Human metapneumovirus with probable secondary bacterial overgrowth pneumoniahypoxia has improved, acute hypoxic respiratory failure present on admission has improvedstable for home. No need for oxygen. Finish a course of antibiotics otherwise as above Resident Activity Tracking Resident Involvement: Resident Care Provided Care Provided: Adult Hospital Medicine
[2022-06-11] MEDS ORDERED: AZITHROMYCIN 250 MG TAB PO ONE (12:29)
[2022-06-11] MEDS ORDERED: cefTRIAXone SODIUM 1,000 MG in DEXTROSE 5% AD-VAN 50 ML IV ONE (13:00)
[2022-06-11] MEDS ORDERED: cefTRIAXone SODIUM 1,000 MG in DEXTROSE 5% AD-VAN 50 ML IV SCH (18:00)
--- NOTE | 2022-06-11 19:12 | Billing Data ---
Date of Service June 11, 2022 Coding Level of Care Code HOSP INP/OBS DISCH 30 MIN/LESS
[2022-06-11] MEDS ORDERED: AZITHROMYCIN 500 MG in DEXTROSE 5% 250 ML IV SCH (20:00)
--- NOTE | 2022-06-12 21:38 | Electrocardiogram Report ---
Test Reason : Blood Pressure : / mmHG Vent. Rate : 110 BPM Atrial Rate : 110 BPM P-R Int : 130 ms QRS Dur : 072 ms QT Int : 306 ms P-R-T Axes : 001 025 006 degrees QTc Int : 414 ms Poor data quality, interpretation may be adversely affected Sinus tachycardia Nonspecific ST abnormality Abnormal ECG When compared with ECG of 04-DEC-2015 06:43, Vent. rate has increased BY [address] now depressed in Anterolateral leads T wave inversion no longer evident in Inferior leads T wave inversion no longer evident in Anterolateral leads Confirmed by Alen Goodman ([id number]) on 06/12/2022 9:37:44 PM Referred By: REFERRED SELF Confirmed By:Alen Goodman
--- NOTE | 2022-06-20 13:19 | Coding Query ---
SEPSIS To promote full compliance with coding requirements relating to patient care, physician participation is requested in all cases of product development manager uncertainty. Please assist us with the question(s) below: In responding to this query, please exercise your independent professional judgement. The fact that a question is asked does not imply that any particular answer is desired or expected. We appreciate your clarification on this issue. Throughout the medical record, you have clearly documented a localized infection and your patient has clinical evidence of a generalized sepsis or severe sepsis. The term urosepsis is a nonspecific entity and is coded as an UTI. If the patient has sepsis, severe sepsis, from an urinary source or some other source, please clarify in your response below. The medical record reflects the following clinical findings: Pt adm with human meta pneumonia and 2nd bacterial pneumonia. H/P documented Sepsis and acute respiratory failure. Please check below, if applicable, the diagnosis that was treated during this brief inpaitient stay. Thanks for your help! Jacky Kiran [employer] [facility] ____ ( )Bacteremia (Nonspecific laboratory finding of bacteria in the blood) Specify Organism ( ) Present on Admission ( ) Not present on admission ( ) Unable to clinically determine ( ) Septicemia (Systemic disease associated with the presence of pathogenic microorganisms in the blood): Specify Organism ( ) Present on Admission ( ) Not present on admission ( ) Unable to clinically determine ( x) Sepsis Specify Organism unspecified Specify Associated Condition/Diagnosis pneumonia ( x) Present on Admission ( ) Not present on admission ( ) Unable to clinically determine ( ) Severe Sepsis (Sepsis associated with acute organ dysfunction) Specify Organism Specify Associated Condition/Diagnosis ( ) Present on Admission ( ) Not present on admission ( ) Unable to clinically determine ( ) Septic Shock (Severe sepsis with acute circulatory failure, unexplained by other causes) ( ) Present on Admission ( ) Not present on admission ( ) Unable to clinically determine ( ) Other, patient has: MTDD
== END 2022-06-11 14:55 | disposition home or self-care (01) | DRG 871 ==
LOC: ED 16:56 → 2W 20:35 → SUATTDRO 20:35 → 2W 22:58
DX: I25.2 Old myocardial infarction; J96.01 Acute respiratory failure with hypoxia; J15.9 Unspecified bacterial pneumonia; Z79.82 Long term (current) use of aspirin; Z79.02 Long term (current) use of antithrombotics/antiplatelets; Z95.5 Presence of coronary angioplasty implant and graft; E87.6 Hypokalemia; I10 Essential (primary) hypertension; E78.5 Hyperlipidemia, unspecified; I25.10 Atherosclerotic heart disease of native coronary artery without angina pectoris; E55.9 Vitamin D deficiency, unspecified; J12.3 Human metapneumovirus pneumonia; A41.9 Sepsis, unspecified organism